=== PATIENT | female | born 1990 | race African-American/Black ===

== ENCOUNTER 2019-07-07 10:46 | Emergency (ER) | payer MEDICAID ==
[~2019-07-07] VITALS: Ht 162.6 cm; Wt 127.0 kg
[2019-07-07 10:51] VITALS: BP 136/94
[2019-07-07] MEDS ORDERED: predniSONE 10 MG TABLET PO ONE (11:00)
[2019-07-07] MEDS ORDERED: IBUPROFEN 200 MG TABLET. PO ONE (11:00)
--- NOTE | 2019-07-07 11:01 | PHYS DOC ---
Past Medical History Attending Signature I have participated in the care of this patient and I have reviewed and agree with all pertinent clinical information above including history, exam, and recommendations. (EULALIO LINDSEY MD) Adult General Chief Complaint Chief Complaint: HEADACHE HPI HPI Patient is a 28 year old female with history of schizophrenia who presents to the ED today to be evaluated for a headache that she states has been going on for months. Patient states this headache has been going on for almost one year, she states she was seen at [facility] a couple months ago and they did a CAT scan of her head and they could not find any acute cause for the headache, she states she was discharged back to the nursing facility she resides and was instructed to take Tylenol or Motrin for her headaches. She states she took 1000 mg of Tylenol this morning with no relief. She is complaining of photosensitivity, denies any nausea vomiting. Denies this being the worst headache in her life. She is apparently a 1-1 care at a local custodial for flight risk, she called 911 herself and when EMS went to the custodial they w ere unable to get hold of the mother who is the DPOA and per protocol EMS had to bring patient to the ED. Patient denies any exacerbating or reliving factors to her headache (EDOUARD DE OLIVEIRA APRN) Review of Systems Review of Systems Constitutional: Denies fever or chills [] Eyes: Denies change in visual acuity, redness, or eye pain [] HENT: Denies nasal congestion or sore throat [] Respiratory: Denies cough or shortness of breath [] Cardiovascular: No additional information not addressed in HPI [] GI: Denies abdominal pain, nausea, vomiting, bloody stools or diarrhea [] : Denies dysuria or hematuria [] Musculoskeletal: Denies back pain or joint pain [] Integument: Denies rash or skin lesions [] Neurologic: Reports headache, denies focal weakness or sensory changes [] All other systems were reviewed and found to be within normal limits, except as documented in this note. (EDOAURD DE OLIVEIRA APRN) Current Medications Current Medications Current Medications Medications (Trade) Dose Ordered Sig/Petra Start Time Stop Time Status Last Admin Dose Admin Ibuprofen (Motrin) 600 mg 1X ONCE 07/07/19 11:00 07/07/19 11:03 DC 07/07/19 11:25 600 MG Prednisone (Prednisone) 50 mg 1X ONCE 07/07/19 11:00 07/07/19 11:03 DC 07/07/19 11:25 50 MG (EULALIO LINDSEY MD) Allergies Allergies Allergies Coded Allergies Type Severity Reaction Last Updated Verified No Known Drug Allergies 07/07/19 No (EULALIO LINDSEY MD) Physical Exam Physical Exam Constitutional: Well developed, well nourished, no acute distress, non-toxic appearance. [] HENT: Normocephalic, atraumatic, bilateral external ears normal, oropharynx moist, no oral exudates, nose normal. [] Eyes: PERRLA, EOMI, conjunctiva normal, no discharge. [] Neck: Normal range of motion, no tenderness, supple, no stridor. [] Cardiovascular:Heart rate regular rhythm, no murmur [] Lungs & Thorax: Bilateral breath sounds clear to auscultation [] Abdomen: Bowel sounds normal, soft, no tenderness, no masses, no pulsatile masses. [] Skin: Warm, dry, no erythema, no rash. [] Back: No tenderness, no CVA tenderness. [] Extremities: No tenderness, no cyanosis, no clubbing, ROM intact, no edema. [] Neurologic: Alert and oriented X 3, normal motor function, normal sensory function, no focal deficits noted. Cranial nerves II through XII intact Psychologic: Affect normal, judgement normal, mood normal. [] (EDOUARD DE OLIVEIRA APRN) Current Patient Data Vital Signs Vital Signs Date Time Temp Pulse Resp B/P (MAP) Pulse Ox O2 Delivery O2 Flow Rate FiO2 07/07/19 10:51 98 18 136/94 (108) Room Air (EULALIO LINDSEY MD) EKG EKG [] (EDOUARD DE OLIVEIRA APRN) Radiology/Procedures Radiology/Procedures [] (EDOUARD DE OLIVEIRA APRN) Course & Med Decision Making Course & Med Decision Making Pertinent Labs and Imaging studies reviewed. (See chart for details) This is a 28-year-old female patient presenting to the ED today with a headache that has been going on for 1 year, patient reports she had a negative CAT of her head a couple months ago. She resides in a local custodial and is on 1:1 for flight risk, they unfortunately were not able to get a hold of the mother who is the DPOA hence had to bring patient to the ED. Patient denies anything unusual about her headache today. She'll be given ibuprofen and prednisone, she already took Tylenol, will be discharged back to the custodial. (EDOUARD DE OLIVEIRA APRN) Dragon Disclaimer Dragon Disclaimer This electronic medical record was generated, in whole or in part, using a voice recognition dictation system. (EDOUARD DE OLIVEIRA APRN) Departure Departure Impression: Primary Impression: Headache Disposition: 01 HOME, SELF-CARE Condition: STABLE Referrals: [facility] MD please follow up with your doctor in 1 week Patient Instructions: Headache, FAQs Additional Instructions: You were evaluated in the emergency for headache. Please follow-up with your primary care doctor in the course of next week. You can take Tylenol or Motrin for your headaches. Problem Qualifiers Primary Impression: Headache Headache type: unspecified Headache chronicity pattern: unspecified pattern Intractability: not intractable Qualified Codes: R51 - Headache EDOUARD DE OLIVEIRA APRN Jul 07, 2019 11:01 EULALIO LINDSEY MD Jul 08, 2019 06:08
== END 2019-07-07 12:18 | disposition home or self-care (01) ==
LOC: ER 10:46
DX: R51 Headache (principal); F20.9 Schizophrenia, unspecified
CPT/HCPCS: 99283; J7512